=== PATIENT | female | born 1985 | race African-American/Black ===

== ENCOUNTER 2017-03-03 14:47 | Emergency (ER) | payer SELFPAY ==
[~2017-03-03] VITALS: Ht 167.6 cm; Wt 63.5 kg
[2017-03-03] MEDS ORDERED: LR 1000ml 1,000 ML IV STA (15:04)
[2017-03-03] MEDS ORDERED: Famotidine 20 MG/ 2ML VIAL IVP ONE (15:15)
[2017-03-03] MEDS ORDERED: Metoclopramide 10mg/2ml Inj IVP ONE (15:15)
[2017-03-03 15:24] LABS: MEAN CORPUSCULAR HEMOGLOBIN 20.3 PG (27.0-31.0); MEAN CORPUSCULAR VOLUME 68 FL (80-99); PLATELET COUNT 317 K/UL (150-450); RED BLOOD COUNT 4.57 M/UL (4.20-5.40); RED CELL DISTRIBUTION WIDTH 16.8 % (11.6-14.8); WHITE BLOOD COUNT 9.5 K/UL (4.8-10.8)
[2017-03-03 15:32] LABS: ALANINE AMINOTRANSFERASE 9 U/L (3-33); ALBUMIN/GLOBULIN RATIO 1.2 (1.0-2.7); ANION GAP 19 (5-15); ASPARTATE AMINO TRANSFERASE 15 U/L (5-40); CALCIUM 9.6 mg/dL (8.6-10.2); CARBON DIOXIDE 20 mEQ/L (20-30); CHLORIDE 101 mEQ/L (98-107); CREATININE 0.8 mg/dL (0.5-0.9); GLOMERULAR FILTRATION RATE > 60 mL/min (>60); HEMOLYSIS 1; LIPASE 17 U/L (< 60); SODIUM 140 mEQ/L (135-145); TOTAL PROTEIN 7.8 g/dL (6.6-8.7)
--- NOTE | 2017-03-03 15:50 | Emergency Room Report ---
History of Present Illness General Chief Complaint: Nausea, Vomiting, and Diarrhea Source: Patient Present Illness HPI 31YOF walk-in with multiple episodes vomiting since 4am after "eating dumplings and [id number]". Denies abd pain, diarrhea, fever/chills, urinary complaints. Denies chance of , drug use. Denies previous abd/pelvic surgery. Allergies: Coded Allergies: No Known Allergies (Unverified , 03/03/17) Patient History Past Medical History: none Past Surgical History: none Pertinent Family History: none Social History: Denies: alcohol use, drug use, smoking Last Menstrual Period: 02/28/17 Now: No : 1 Para: 1 Immunizations: UTD Reviewed Nursing Documentation: PMH: Agreed, PSxH: Agreed Nursing Documentation-PMH Past Medical History: No Stated History Review of Systems All Other Systems: negative except mentioned in HPI Physical Exam Vital Signs Date Time Temp Pulse Resp B/P Pulse Ox O2 Delivery O2 Flow Rate FiO2 03/03/17 15:18 97.0 60 12 114/91 100 Room Air Sp02 EP Interpretation: reviewed, normal General Appearance: normal inspection, well appearing, no apparent distress, alert, GCS 15, non-toxic Head: normocephalic, atraumatic Eyes: bilateral eye EOMI, bilateral eye PERRL ENT: normal ENT inspection, hearing grossly normal, normal voice Neck: normal inspection, full range of motion, supple, no bony tend Respiratory: normal inspection, lungs clear, normal breath sounds, no respiratory distress, no retraction, no wheezing Genitourinary: no CVA tenderness Musculoskeletal: normal inspection, back normal, normal range of motion, Baldev' s Sign negative Neurologic: normal inspection, alert, oriented x3, responsive, roving inspector III-XII nml as tested, motor strength/tone normal, speech normal Psychiatric: normal inspection, judgement/insight normal, mood/affect normal Skin: normal inspection, normal color, no rash Lymphatic: normal inspection Medical Decision Making Diagnostic Impression: Primary Impression: Nausea, vomiting, and diarrhea ER Course Nausea, vomiting - VSS. Afebrile - Non-focal abdomen on serial exam - Urine preg negative - No leuks. H&H stable. Lipase normal. Mild AG likely d/t vomiting. - UA: No UTi - Utox + for MJ Feels better after IV hydration, anti-emetics Tolerating PO DC with pepcid, zofran PMD followup Last Vital Signs Date Time Temp Pulse Resp B/P Pulse Ox O2 Delivery O2 Flow Rate FiO2 03/03/17 15:18 97.0 60 12 114/91 100 Room Air Status: improved Disposition: HOME, SELF-CARE Scripts Ondansetron Odt* (ZOFRAN ODT*) 4 Mg Tab.rapdis 4 MG ORAL BID Y for Nausea & Vomiting for 7 Days, #14 TAB 0 Refills Prov: TASNEEM MILLER M.D. 03/03/17 Famotidine (PEPCID) 20 Mg Tablet 20 MG ORAL BID for 7 Days, #14 TAB 0 Refills Prov: TASNEEM MILLER M.D. 03/03/17 TASNEEM MILLER M.D. Mar 03, 2017 15:50
[2017-03-03] MEDS ORDERED: PEPCID20 MG ORAL (15:52)
[2017-03-03] MEDS ORDERED: ZOFRAN ODT4 MG ORAL (15:52)
[2017-03-03 16:12] VITALS: BP 114/91
[2017-03-03 16:20] LABS: APPEARANCE,URINE CLEAR; KETONES,URINE 3+ (NEGATIVE); LEUKOCYTE ESTERASE ,URINE 1+ (NEGATIVE); NITRITE,URINE NEGATIVE (NEGATIVE); PH,URINE 8 (4.5-8.0); PROTEIN,URINE NEGATIVE (NEGATIVE); UROBILINOGEN,URINE NORMAL MG/DL (0.0-1.0)
[2017-03-03 16:48] LABS: BACTERIA,URINE FEW /HPF; RBC,URINE 20-30 /HPF (0 - 2); SQUAMOUS EPITHELIAL CELL,UR FEW /LPF (NONE/OCC)
[2017-03-03 17:10] VITALS: BP 117/73
[2017-03-03 18:09] LABS: LYMPHOCYTES % (MANUAL) 8 % (20-45); NEUTROPHILS % (MANUAL) 88 % (45-75); TOTAL CELLS COUNTED 100
[2017-03-03 18:10] LABS: BAND NEUTROPHILS % (MANUAL) 0 % (0-8); BASOPHILS % (MANUAL) 0 % (0-2); EOSINOPHILS % (MANUAL) 0 % (0-3); PLATELET ESTIMATE ADEQUATE
[2017-03-03 18:11] LABS: ANISOCYTOSIS 2+; HYPOCHROMASIA 2+; MICROCYTES 2+; PLATELET MORPHOLOGY NORMAL; POLYCHROMASIA 1+
== END 2017-03-03 17:10 | disposition home or self-care (01) ==
LOC: EMR 15:30
DX: R11.2 Nausea with vomiting, unspecified (principal); R19.7 Diarrhea, unspecified
CPT/HCPCS: 36415; 80053; 80300; 81003; 81025; 83690; 85007; 85025; 96374; 96375; 99284; J2405; J2765; J7120; S0028